=== PATIENT | female | born 1990 | race Caucasian/White ===

== ENCOUNTER → 2020-05-19 | Outpatient (CLI) | payer SELFPAY | LOC: LAB.O 08:50 | PROVIDERS: ATTEND Internal Medicine Infectious Disease | DX: N61.1 Abscess of the breast and nipple (principal); N64.9 Disorder of breast, unspecified ==

== ENCOUNTER → 2020-06-21 | Outpatient (CLI) | payer SELFPAY | LOC: BFHH 14:35 | PROVIDERS: ATTEND Internal Medicine Infectious Disease | DX: Z45.2 Encounter for adjustment and management of vascular access device (principal); T85.79XA Infection and inflammatory reaction due to other internal prosthetic devices, implants and grafts, initial encounter; N61.1 Abscess of the breast and nipple ==

== ENCOUNTER 2020-06-28 23:17 | Emergency (ER) | payer SELFPAY ==
[2020-06-28 23:38] VITALS: TEMP 101.3
[2020-06-29] MEDS ORDERED: SODIUM CHLORIDE 0.9% 1000ML 1,000 ML IVS ONE (00:17)
--- NOTE | 2020-06-29 00:34 | RAD ---
EXAM DESCRIPTION: XR Chest,1 View CLINICAL HISTORY: fever TECHNIQUE: Single frontal view of the chest is submitted. COMPARISON: 06/18/2007 FINDINGS: Lungs: No focal consolidation. Pleura: No appreciable effusion. No pneumothorax. Heart: The cardiothoracic silhouette is within normal limits. Mediastinum: Unremarkable Bones: Intact Upper abdomen: Unremarkable IMPRESSION: No acute disease. Electronically signed by: Cristopher Rao MD 06/29/2020 12:33 AM METAL EXPEDITER
--- NOTE | 2020-06-29 00:57 | ED.PDOC ---
History of Present Illness - General Chief Complaint: Fever Stated Complaint: fever, wound under right breast Time Seen by Provider: 06/29/20 00:13 Source: patient, RN notes reviewed, Vital Signs reviewed, other - Labs from earlier draw today. - History of Present Illness Initial Comments: Patient is a 30-year-old white female who presents with complaints of nausea, diarrhea and fever along with continued right breast drainage. Patient symptoms worsened today. The body aches are cramping in nature. They are severe. They are constant. They are worsening. There is no radiation of the pain. Timing/Duration: 4-6 hours, getting worse Severity: moderate Improving Factors: nothing Worsening Factors: nothing Associated Symptoms: fever/chills, malaise, nausea/vomiting Allergies/Adverse Reactions: Allergies NO KNOWN ALLERGY Allergy (Verified 06/29/20 00:20) Review of Systems - Review of Systems Constitutional: States: see HPI, chills, fever. Denies: malaise, weakness EENTM: States: no symptoms reported. Denies: eye pain, blurred vision, double vision, throat pain Respiratory: States: no symptoms reported. Denies: cough, short of breath, stridor, wheezing Cardiology: States: no symptoms reported. Denies: chest pain, palpitations, syncope Gastrointestinal/Abdominal: States: see HPI, diarrhea, nausea. Denies: abdominal pain Genitourinary: States: no symptoms reported. Denies: dysuria, frequency Musculoskeletal: States: see HPI. Denies: back pain, joint pain, neck pain Skin: States: no symptoms reported. Denies: change in color, rash Neurological: States: no symptoms reported. Denies: headache, tingling, tremors, weakness Endocrine: States: no symptoms reported. Denies: increased hunger, increased thirst, increased urine Hematologic/Lymphatic: States: no symptoms reported. Denies: blood clots, easy bleeding All other Systems: Reviewed and Negative Past Medical History (General) - Patient Medical History Hx Seizures: No Hx Stroke: No Hx Dementia: No Hx Asthma: No Hx of COPD: No Hx Cardiac Disorders: No Hx Congestive Heart Failure: No Hx Pacemaker: No Hx Hypertension: No Hx Thyroid Disease: No Hx Diabetes: No Hx Gastroesophageal Reflux: No Hx Renal Disease: No Hx Cancer: No Hx of HIV: No Hx Hepatitis C: No Hx MRSA: No Surgical History: appendectomy, other - Vaccination History Hx Tetanus, Diphtheria Vaccination: Yes Hx Influenza Vaccination: Yes Hx Pneumococcal Vaccination: No - Social History Hx Tobacco Use: Yes Hx Chewing Tobacco Use: No Hx Alcohol Use: Yes Hx Substance Use: No Hx Substance Use Treatment: No Hx Depression: No Feels Threatened In Home Enviroment: No Feels Threatened In a Relationship: No Hx Physical Abuse: No Hx Emotional Abuse: No Hx Suspected Abuse: No - Female History Patient is a Female of Child Bearing Age (10 -59 yrs old): Yes Patient : No - Triage Comment ED Triage Comment: The patient walked from the ER waiting room into ER room 5 and was left in bed with rails up. She was alert and oriented times 4 and complained of N/V and fever for 2 days with body aches and headache. She did not appear in distress and had no other noted complaints during the assessment. The patient had also completed her IV antibiotic treatment at 2130 and had been taking Tylenol for the fever 1000mg bora 6 hours. Family Medical History - Family History Mother Family History: Unknown Physical Exam - Physical Exam General Appearance: Alert, Anxious, Well Developed, Well Groomed, Well Hydrated, Well Nourished Eye Exam: bilateral normal Ears, Nose, Throat: hearing grossly normal, normal ENT inspection, normal pharynx - Except dry mucous membranes Neck: non-tender, full range of motion Respiratory: chest non-tender, lungs clear, normal breath sounds, no respiratory distress Cardiovascular/Chest: normal peripheral pulses, no edema, no gallop, no murmur, tachycardia, other - Patient with a draining surgical wound on the right chest inferior to the right breast. Peripheral Pulses: radial,right: 2+, radial,left: 2+ Gastrointestinal/Abdominal: normal bowel sounds, non tender, soft Back Exam: normal inspection, no CVA tenderness, no vertebral tenderness Extremity: normal range of motion, non-tender, normal inspection Neurologic: title assistant II-XII nml as tested, no motor/sensory deficits, alert, normal mood/affect, oriented x 3 Skin Exam: normal color, warm/dry Lymphatic: no adenopathy Progress - Progress Progress: Differential diagnosis: Sepsis, Covid, pneumonia, influenza among others. 06/29/20 02:03 Patient's labs are markedly changed from the ones drawn earlier today. Her white count has gone from 3.2-1.7, her absolute neutrophil count is 1100. Her platelet count has gone from 125-108. Her LFTs are now markedly increased from earlier today. Patient is noted to have a mildly depressed potassium and magnesium. These will be repleted. Plan on attempting to contact the patient's ID specialist to discuss her care. I suspect the lab abnormalities are secondary to the IV antibiotics she has been prescribed. We will reassess her after discussion with her specialist. 06/29/20 04:24 Repeated attempts to contact patient's infectious disease doctor. Patient is feeling much improved after IV fluids and Motrin. There is no source obtained for fever though I have concerns this may be drug related as she now has leukopenia and thrombocytopenia. Plan discharge home with follow-up with her infectious disease doctor this morning. I provided patient a copy of all her lab work. Patient voices understanding and agreement with the plan of care. Lee Moseley M.D. #[id number] - Results/Orders Results/Orders: EXAM DESCRIPTION: XR Chest,1 View CLINICAL HISTORY: fever TECHNIQUE: Single frontal view of the chest is submitted. COMPARISON: 06/18/2007 FINDINGS: Lungs: No focal consolidation. Pleura: No appreciable effusion. No pneumothorax. Heart: The cardiothoracic silhouette is within normal limits. Mediastinum: Unremarkable Bones: Intact Upper abdomen: Unremarkable IMPRESSION: No acute disease. Electronically signed by: Cristopher Rao MD 06/29/2020 12:33 AM LINK MACHINE OPERATOR 06/29/20 00:15 Isolation:Airborne ONCE Pulse Ox, Continuous Monitoring STAT 06/30/20 00:15 Pulse Ox, Continuous Monitoring STAT 07/01/20 00:15 Pulse Ox, Continuous Monitoring STAT 07/02/20 00:15 Pulse Ox, Continuous Monitoring STAT Laboratory Results - last 24 hr 06/29/20 06/29/20 06/29/20 00:30 00:30 00:30 WBC 1.7 L* D RBC 4.00 L Hgb 12.5 Hct 35.5 L MCV 88.7 MCH 31.2 H MCHC 35.2 RDW 13.1 Plt Count 108 L MPV 8.1 Absolute Neuts (auto) Not Reportable Absolute Lymphs (auto) Not Reportable Absolute Monos (auto) Not Reportable Absolute Eos (auto) Not Reportable Neutrophils % Not Reportable Neutrophils % (Manual) 70.0 Lymphocytes % Not Reportable Lymphocytes % (Manual) 27.0 Monocytes % Not Reportable Monocytes % (Manual) 3.0 Eosinophils % Not Reportable Basophils % Not Reportable Platelet Estimate Decreased Normal RBC Morphology Normal rbc morph PTT (SP) 38.7 H Sodium 134 L Potassium 3.4 L Chloride 99 L Carbon Dioxide 23 Anion Gap 15.4 BUN 9 Creatinine 0.65 BUN/Creatinine Ratio 13.8 Random Glucose 105 Serum Osmolality 267.3 L Calcium 9.0 Magnesium 1.7 L Total Bilirubin 0.8 AST 223 H D ALT 76 H D Alkaline Phosphatase 52 LD Total 732 H Creatine Kinase 36 Troponin I Serum Total Protein 7.4 Albumin 3.9 Globulin 3.5 Albumin/Globulin Ratio 1.1 06/29/20 00:30 WBC RBC Hgb Hct MCV MCH MCHC RDW Plt Count MPV Absolute Neuts (auto) Absolute Lymphs (auto) Absolute Monos (auto) Absolute Eos (auto) Neutrophils % Neutrophils % (Manual) Lymphocytes % Lymphocytes % (Manual) Monocytes % Monocytes % (Manual) Eosinophils % Basophils % Platelet Estimate Normal RBC Morphology PTT (SP) Sodium Potassium Chloride Carbon Dioxide Anion Gap BUN Creatinine BUN/Creatinine Ratio Random Glucose Serum Osmolality Calcium Magnesium Total Bilirubin AST ALT Alkaline Phosphatase LD Total Creatine Kinase Troponin I < 0.02 Serum Total Protein Albumin Globulin Albumin/Globulin Ratio Departure - Departure Clinical Impression: Thrombocytopenia, Viral illness Fever Qualifiers: Fever type: unspecified Qualified Code(s): R50.9 - Fever, unspecified Leukopenia Qualifiers: Leukopenia type: neutropenia Neutropenia type: unspecified Qualified Code(s): D70.9 - Neutropenia, unspecified Disposition: Discharge to Home or Self Care Condition: Fair Departure Forms: ED Discharge - Pt. Copy, Patient Portal Self Enrollment Instructions: Fever of Unknown Origin, Viral Upper Respiratory Infection, Adult (DC) Diet: resume usual diet Activity: increase activity as tolerated Referrals: JOLIE SIMPSON MD [Primary Care Provider] - 1-5 Days
[2020-06-29] MEDS ORDERED: IBUPROFEN 200 MG TAB PO ONE (01:51)
[2020-06-29] MEDS ORDERED: MAGNESIUM SULFATE INJ 1 GM in SODIUM CHLORIDE 0.9% 100ML 100 ML IVPB ONE (02:07)
[2020-06-29] MEDS ORDERED: HEPARIN SODIUM 100 U/ML 5 ML SYG IV ONE (04:05)
[2020-06-29 04:39] VITALS: BP 115/72; O2SAT 98
== END 2020-06-29 04:38 | disposition home or self-care (01) ==
LOC: ER 23:17
DX: B34.9 Viral infection, unspecified (principal); D70.9 Neutropenia, unspecified; D69.6 Thrombocytopenia, unspecified; Z87.891 Personal history of nicotine dependence; Z90.49 Acquired absence of other specified parts of digestive tract
CPT/HCPCS: 71045; 80053; 82550; 83615; 83735; 84484; 85025; 85730; J1642; J3475; J7030; J7050

== ENCOUNTER → 2020-06-28 | Outpatient (CLI) | payer SELFPAY | LOC: BFHH 17:35 | PROVIDERS: ATTEND Internal Medicine Infectious Disease | DX: Z45.2 Encounter for adjustment and management of vascular access device (principal); T85.79XA Infection and inflammatory reaction due to other internal prosthetic devices, implants and grafts, initial encounter; N61.1 Abscess of the breast and nipple ==

== ENCOUNTER → 2020-07-01 | Outpatient (CLI) | payer SELFPAY | LOC: LAB.O 15:11 | PROVIDERS: ATTEND Internal Medicine Infectious Disease | DX: N61.1 Abscess of the breast and nipple (principal); B96.5 Pseudomonas (aeruginosa) (mallei) (pseudomallei) as the cause of diseases classified elsewhere ==